=== PATIENT | female | born 1985 | race Caucasian/White ===

== ENCOUNTER 2016-12-03 19:55 | Inpatient (IN) | payer OTHER ==
[~2016-12-03] VITALS: Ht 172.7 cm; Wt 63.5 kg
[~2016-12-03 19:55] MED LIST: TRAZODONE100 MG PO; VALIUM2 MG PO; ZOLOFT 100 MG100 MG PO
--- NOTE | 2016-12-03 20:15 | ED PSYCHIATRIC COMPLAINT ---
History of Present Illness General Chief Complaint: ETOH/Drug Related Complaint Stated Complaint: BIBA FOR ETOH Source: patient Exam Limitations: intoxication Vital Signs & Intake/Output Vital Signs & Intake/Output Vital Signs Date Time Temp Pulse Resp B/P Pulse O2 O2 Flow FiO2 Ox Delivery Rate 12/05 0813 140/100 12/05 0718 144/88 12/05 0624 150/106 12/05 0619 97.8 90 20 148/110 97 12/05 0600 97.8 90 20 150/106 12/05 0411 98.2 70 20 134/92 96 12/05 0400 98.2 70 20 134/92 12/05 0000 99.1 84 20 134/82 12/05 0000 99.1 86 20 134/82 12/04 1999 99.5 85 18 124/80 12/04 1999 99.5 85 18 124/80 12/04 1352 97.8 80 20 142/80 96 Room Air 12/04 1141 79 20 150/80 93 Room Air ED Intake and Output 12/05 0000 12/04 1200 Intake Total 480 Output Total 200 Balance 280 Intake, Oral 480 Output, 200 Emesis Patient 140 lb Weight Allergies Coded Allergies: NO KNOWN ALLERGIES (01/01/15) Reconcile Medications Quetiapine Fumarate (Seroquel) 200 MG TABLET 1 TAB PO QPM MENTAL HEALTH ( Reported) TRAZODONE HCL (Trazodone HCl) 100 MG TABLET 2 TAB PO QPM SLEEP (Reported) Triage Note: PT BIBA ON PEER FOR ALCOHOL INTOXICATION. PER FAMILY, PT HAD BEEN DRINKING ALCOHOL AND USING ILLICT DRUGS FOR APPROXIMATELY THREE WEEKS. FAMILY REQUESTED PT TO HAVE DETOX AND SHE BECAME AGGRESSIVE ONSCENE. PT CRYING BUT COOPERATIVE UPON ARRIVAL. PT STATED SHE LST DRANK VODKA APPROX 1 HOUR AGO. DENIED ILLICIT DRUG USE AT THIS TIME. SECURITY AT BEDSIDE TO JUAN JOSE PT. PT CHANGED INTO PAPER SCRUBS. 1 BELONGINGS BAG TO CLOSET. NO VALUABLES BAG. DENIED SI/HI Triage Nurses Notes Reviewed? yes HPI: Patient presents for evaluation of withdrawal from alcohol. Patient states that her father told her to go to the emergency department due to withdrawal. Patient states that her last alcoholic beverage consisted of vodka a few hours ago. History is very limited due to the patient's clinical intoxication. She states that she has a headache, has flashes and feels shaky. Past History Travel History Traveled to [place] past 21 day No Medical History Any Pertinent Medical History? 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 History of MRSA: No History of VRE: No History of CDIFF: No Influenza Vaccine: 09/13/16 Surgical History Surgical History: none Psychosocial History Who do you live with Mother Services at Home None What is your primary language Albanian Family History Family History, If Any: Relation not specified for: Alcoholism in family Hx Contributory? No Review of Systems Review of Systems Constitutional: Reports: no symptoms. EENTM: Reports: no symptoms. Respiratory: Reports: no symptoms. Cardiovascular: Reports: no symptoms. GI: Reports: no symptoms. Genitourinary: Reports: no symptoms. Musculoskeletal: Reports: no symptoms. Skin: Reports: no symptoms. Neurological/Psychological: Reports: no symptoms. Hematologic/Endocrine: Reports: no symptoms. Immunologic/Allergic: Reports: no symptoms. All Other Systems: Reviewed and Negative Physical Exam Physical Exam General Appearance: SEE BELOW Neurological/Psychiatric: SEE BELOW Comments: General: Alert, calm, cooperative, EtOH-like odor Head: Normocephalic, atraumatic Eyes: Normal inspection, nystagmus present, EOMI Ears: Normal inspection Nose: Normal inspection Throat: Moist mucosa Neck: Supple, no goiter Heart: Regular rate and rhythm, no murmurs rubs or gallops Lungs: Clear to auscultation bilaterally with good air entry Abdomen: Soft nontender nondistended, normal bowel sounds Chest: Nontender Extremities: Normal range of motion grossly, mild tremors present, no cyanosis clubbing or edema of the extremities Neurologic: cranial nerves II through XII grossly intact, speech slurred, gait not assessed given clinical intoxication Psychiatric: No apparent delusions or hallucinations, no pressured speech or thought blocking SAD PERSONS Done? patient not suicidal Progress Differential Diagnosis: drug intoxication, drug overdose, drug withdrawal Plan of Care: Orders Procedure Date/time Status Change service to 12/05 0756 Active BASIC ELECTROLYTES PLUS BUN&CR 12/05 0500 Active Regular Diet 12/04 L Complete MAGNESIUM 12/04 1820 Complete HEPATIC FUNCTION PANEL 12/04 1820 Complete BASIC ELECTROLYTES PLUS BUN&CR 12/04 1800 Complete Patient Safety Monitor 12/04 1538 Active Vital Signs 12/04 1138 Active Teach/Educate 12/04 1138 Active Nutritional Intake, Monitor 12/04 1138 Active Isolation 12/04 1138 Active Intake & Output 12/04 1138 Active Patient Care Conference 12/04 1138 Active Activity/Ambulation 12/04 1138 Active Pathway - chart 12/04 1043 Active URINE 12/04 1043 Complete Add-on Test (ER Only) 12/04 1040 Active SOCIAL WORK CONSULT 12/04 1037 Active Lab Add-on Test 12/04 UNK Active PSYCHIATRIC CONSULT 12/04 UNK Active HEPATITIS PANEL 12/03 2159 Complete Current Medications Sig/Joel Start time Last Medication Dose Stop Time Status Admin Promethazine HCl 25 MG Q4P PRN 12/05 1030 UNVr (Phenergen) 12/12 1029 Nicotine 21 MG DAILY 12/05 1028 UNVr (Nicoderm) Pantoprazole Sodium 40 MG DAILY 12/05 1028 UNVr (Protonix) Folic Acid 1 MG DAILY 12/05 1000 AC (Folic Acid) Multivitamins 1 TAB DAILY 12/05 1000 AC (Theragran Vitamins) Thiamine HCl 100 MG DAILY 12/05 1000 AC (Vitamin B1) Magnesium Sulfate 1 GM ONCE ONE 12/05 0345 CAN (Mag Sulfate in D5) 12/05 0744 Dextrose/Water 100 ML (D5W) Cyanocobalamin/ 1 BAG ONCE ONE 12/04 2200 CAN Thiamine/Pyridoxine 12/05 0559 (Vitamin in I.V.) Dextrose/Water 1,000 ML (D5W 1000) Morphine Sulfate 2 MG Q4P PRN 12/04 1045 AC (Morphine) Oxycodone/ 1 TAB Q6P PRN 12/04 1045 AC Acetaminophen (Percocet) Thiamine HCl 100 MG ONCE ONE 12/04 1045 CAN (Vitamin B-1) 12/04 1144 Sodium Chloride 100 ML (Normal Saline 0.9%) Folic Acid 1 MG DAILY 12/04 1034 CAN (Folic Acid) Laboratory Tests 12/05/16 0900: Sodium Pending, Potassium Pending, Chloride Pending, Carbon Dioxide Pending, Anion Gap Pending, BUN Pending, Creatinine Pending, BUN/Creatinine Ratio Pending 12/04/16 1820: Total Bilirubin Cancelled, Direct Bilirubin Cancelled, AST Cancelled, ALT Cancelled, Alkaline Phosphatase Cancelled, Total Protein Cancelled, Albumin Cancelled 12/04/16 1820: Anion Gap 8, Estimated GFR > 60, BUN/Creatinine Ratio 10.0, Magnesium 1.7, Total Bilirubin 0.9, Direct Bilirubin 0.2, AST 199 H, ALT 130 H, Alkaline Phosphatase 62, Total Protein 6.1 L, Albumin 3.1 L 12/04/16 1043: Urine Test NEGATIVE Comments: 12/04/2016 12:27:32 AM patient has evidence of alcohol induced hepatitis and mild alcohol-induced pancreatitis. With review of the patient's 2 prior emergency department visits (she was placed in alcohol detox on both occasions) her alcohol level was nondetectable and her transaminases and lipase levels were normal. Patient is currently intoxicated. She does not seem to be manifesting signs of acute withdrawal at this time. I suspect that as the alcohol is metabolized that her lipase and transaminases will improve. Plan continued observation in the emergency department with repeat comprehensive metabolic panel. Serial CIWA scores. Departure Departure Disposition: STILL A PATIENT Condition: Stable Clinical Impression Primary Impression: Alcoholic hepatitis Secondary Impressions: Alcohol intoxication, Alcohol withdrawal, Alcoholic pancreatitis Referrals: SOPHIA REMY,THOMAS Rodriguez (PCP/Family) Departure Forms: Customer Survey General Discharge Information Admission Note Spoke With: SUSHIL MUELLER MD Documentation of Exam: Documentation of any treatments & extenuating circumstances including Concerns Regarding Discharge (functional status, medication knowledge or non-compliance, living conditions, etc.) that warrant an admission rather than observation: Continued alcohol consumption places the patient at high risk of pancreatitis, pancreatic failure, liver failure/cirrhosis. In order to avoid this the patient will need to cease drinking alcohol. Patient's alcohol use places pt at high risk of seizures and delirium tremens during cessation. Patient will be at high risk of withdrawal seizures and delirium tremens (both of which can be fatal) for up to 5 days after stopping alcohol. pt will require IV Ativan to prevent these complications. pt is therefore a very poor candidate for outpatient treatment given the above concerns. In addition the patient is also experiencing alcohol-induced hepatitis and mild alcohol-induced pancreatitis. Patient's transaminases and lipase levels should be monitored for improvement with cessation of alcohol. Pt will require at least 3 if not 5-7 days of treatment during alcohol cessation.
--- NOTE | 2016-12-03 20:25 | NUR ---
DR COREAS AT BEDSIDE FOR EVAL
[2016-12-03 21:10] VITALS: BP 122/88
--- NOTE | 2016-12-03 21:59 | NUR ---
LABS DRAWN AND SENT BY THIS [facility] (SST,LAV)
--- NOTE | 2016-12-03 22:06 | NUR ---
PT MEDICATED WITH ZOFRAN 4MG ODT FOR NAUSEA
[2016-12-03 22:09] LABS: ABSOLUTE BASOPHIL COUNT 0 /CUMM (0.0-0.2); ABSOLUTE EOSINOPHIL COUNT 0.1 /CUMM (0.0-0.7); ABSOLUTE GRANULOCYTE CT 6.4 /CUMM (1.4-6.5); ABSOLUTE LYMPH COUNT 1.9 /CUMM (1.2-3.4); ABSOLUTE MONOCYTE COUNT 0.4 /CUMM (0.10-0.60); BASOPHIL % 0.2 % (0.0-2.0); EOSINOPHIL % 1.3 % (0-5); GRANULOCYTE % 72.9 % (42.2-75.2); HEMATOCRIT 40.8 % (37-47); MEAN CORPUSCULAR HGB CONC 32.6 G/DL (33.0-37.0); MEAN PLATELET VOLUME 8.3 FL (7.4-10.4); PLATELET COUNT 209 /CUMM (130-400); RBC DISTRIBUTION WIDTH 16.4 % (11.5-14.5); WHITE BLOOD CELL COUNT 8.8 /CUMM (4.8-10.8)
[2016-12-03] MEDS ORDERED: SEROQUEL200 M1 PO (23:04)
[2016-12-03 23:30] VITALS: BP 113/73
--- NOTE | 2016-12-03 23:48 | NUR ---
PATIENT NOTED TO BE YELLING IN ROOM AT THIS TIME STATING I WANT TO CALL MY MOM!!!!!!!!!" PATIENT INFORMED OF CURRENT TIME, PATIENT STATES "OKAY, FINE. I DON'T WANT TO CALL HER. I JUST WANT TO SLEEP BUT I NEED MY TRAZODONE AND SEROQUEL." PATIENT INFORMED WAITING FOR MD TO ORDER MEDS PRIOR TO ADMINISTRATION. MD AWARE OF PATIENT REQUEST, AWAITING ORDERS. LIMITS SET W/ PATIENT REGARDING YELLING AT STAFF. PATIENT APOLOGETIC. SITTER REMAINS W/ PATIENT.
[2016-12-04] VITALS (8 sets, daily range): BP systolic 124–158; BP diastolic 71–97
--- NOTE | 2016-12-04 00:13 | NUR ---
PATIENT MEDICATED W/ TRAZODONE AND SEROQUEL PER EMAR. TOLERATED WELL. PATIENT REQUESTING BLANKETS FROM SITTER, BLANKETS PROVIDED. STATES "I'M JUST GOING TO GO TO SLEEP NOW." COOPERATIVE. LIGHTS DIMMED.
--- NOTE | 2016-12-04 01:29 | NUR ---
PATINT SLEEPING AT THIS TIME, REGULAR RESPIRATIONS NOTED. SITTER REMAINS W/ PATIENT. LIGHTS DIMMED.
--- NOTE | 2016-12-04 01:45 | NUR ---
PATIENT NOW AWAKE AND VOMITTING, CIWA SCORE-15. PATIENT DROWSY BUT AROUSABLE, FALL RISK, ASSISTED TO LAYING ON BED, PATIENT ATTEMPTING TO AMBULATE TO NURSES STATION. RN TO BEDSIDE SPEAKING W/ PATIENT W/ SITTER. MD AWARE OF PATIENT STATUES ANS CURRENT CIWA SCORE. AWAITING MED ORDERS.
--- NOTE | 2016-12-04 02:30 | NUR ---
IV EST #22 LEFT WRIST. NS INITIATED AT 150ML/HR PER EMAR. TOLERATING WELL. MEDICATED W/ ATIVAN 2MG IVP PER EMAR. TOLERATED WELL.
--- NOTE | 2016-12-04 03:45 | NUR ---
CIWA-14. PATIENT REPORT FEELING NAUSEOUS, REQUESTING ATIVAN. NOTED TO BE SPITTING INTO BASIN AT BEDSIDE. PATIENT DROWSY, PALE. HR NOW 108. PATIENT N OW REPORTING HEADACHE 05/22. MD AWARE AND ORDERING ZOFRAN. PATIENT INFORMED WAITING. NS CONTINUES TO INFUSE AT 150ML/HR.
--- NOTE | 2016-12-04 04:09 | NUR ---
PATIENT MEDICATED W/ ZOFRAN PER EMAR. TOLERATED WELL.
--- NOTE | 2016-12-04 05:30 | NUR ---
PATIENT NOTED TO BE VOMITTING DARK BROWN EMESIS, MD COREAS AWARE. MED ORDERS GRACIELA PLACED BY .
--- NOTE | 2016-12-04 05:50 | NUR ---
CIWA-15. PATIENT MEDICATED W/ ATIVAN AND PROTONIX PER EMAR. TOLERATED WELL.
--- NOTE | 2016-12-04 05:57 | NUR ---
POC ADMIT TO MD TIA AWAITING CALL FROM CASE MANAGEMENT TO CONFIRM.
--- NOTE | 2016-12-04 06:00 | NUR ---
PATIENT MEDICATED W/ PHENERGAN PER EMAR, INFUSING OVER 30 MINUTES, TOLERATING WELL.
--- NOTE | 2016-12-04 07:37 | NUR ---
CONT TO VOMIT.
--- NOTE | 2016-12-04 07:37 | NUR ---
PER NIGHT STAFF AWAITING CALL FROM [facility]. PER DR COREAS CONTINUING CARE JUST CALLED BACK.
--- NOTE | 2016-12-04 07:45 | NUR ---
MOVED TO ROOM 7. REQUESTS MORE ATIVAN,
--- NOTE | 2016-12-04 08:20 | NUR ---
URINE SAMPLE SENT TO LAB
--- NOTE | 2016-12-04 08:20 | NUR ---
PT TO BR, URINE FINALLY OBTAINED, PT INSISTS ON DRINKING WATER AND STATES SHE WILL DRINK FROM SINK, PT AWARE THAT SHE WILL BE PLACED IN HALLWAY BECAUSE SHE IS INSISTANT ON DRINKING FROM SINK, PT GIVEN 4 ICE CHIPS. REQUESTS ATIVAN, PT VS AND CIWA DO NOT SUPPORT ATIVAN. WILL DISCUSS WITH PROVIDER.
--- NOTE | 2016-12-04 08:42 | NUR ---
PT VERY ANXIOUS, CRYING AND EMOTIONAL PT CONT TO DRY HEAVE. AWARE OF NEED TO STAY NPO. PT VERY DIFFICULT TO INTERACT WITH REQUESTS TO KNOW DOSE OF ATIVAN PT AWARE THAT IT IS A PRN DOSE, BUT STATES SHE NEEDS MORE CIWA 5 BASED ON VOMITING AND ANXIETY WELL MILD AGITATION.
--- NOTE | 2016-12-04 08:55 | NUR ---
CONT TO AWAIT ORDERS FOR ADMISSION.
--- NOTE | 2016-12-04 09:15 | NUR ---
ADMISSION ORDERS NOW BEING PLACED.
--- NOTE | 2016-12-04 09:19 | NUR ---
PT FINALLY ASLEEP. NO DISTRESS.
--- NOTE | 2016-12-04 09:23 | History & Physical ---
RYEES NAVA MD 12/04/16 0922: General Information and HPI MD Statement: I have seen and personally examined MINDY JUNIOR and documented this H&P. The patient is a 31 year old F who presented with a patient stated chief complaint of [alcohol withdrawal]. Source of Information: patient, family, old records History of Present Illness: The patient is a 31-year-old female with a past medical history of anxiety and depression, history of alcohol abuse and has been drinking alcohol since the age of 16, history of multiple admissions to [facility] with the last one being in October 2016 and left AGAINST MEDICAL ADVICE at that time. The patient also has a remote history of leaving AMA from [facility] in October 2016. The patient was brought to the emergency department yesterday at 8 PM by her father who requested that the patient needs an alcohol detox. The father also mentioned that the patient has been drinking since she has left AGAINST MEDICAL ADVICE from here. Her last drink was 1 pint of vodka one hour before coming to the emergency department. When I saw the patient today in the morning the patient was still drowsy and was not able to give enough history due to medication effect and hence most of the history was obtained from the father and from the ER staff. The patient also has a history of smoking cocaine and marijuana. She does have a history of IV drug use even though she denies IV heroin injections recently. The patient has been feeling nauseous and had multiple episodes of clear vomitus. No history of alcohol-induced seizures in the past. Allergies/Medications Allergies: Coded Allergies: NO KNOWN ALLERGIES (01/01/15) Home Med list Quetiapine Fumarate (Seroquel) 200 MG TABLET 1 TAB PO QPM MENTAL HEALTH ( Reported) TRAZODONE HCL (Trazodone HCl) 100 MG TABLET 2 TAB PO QPM SLEEP (Reported) Past History Travel History Traveled to [place] past 21 day No Medical History Neurological: NONE EENT: NONE Cardiovascular: NONE Respiratory: NONE Gastrointestinal: ACID REFUX Hepatic: NONE Renal: NONE Musculoskeletal: NONE Psychiatric: alcohol dependence, anxiety, depression, CUTTING HERSELF PTSD PTSD Endocrine: NONE Blood Disorders: NONE Cancer(s): NONE 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 History of MRSA: No History of VRE: No History of CDIFF: No Isolation History: Standard Surgical History Surgical History: none Past Family/Social History Family History Relations & Conditions if any Relation not specified for: Alcoholism in family Psychosocial History Services at Home: None ETOH Use: heavy use Illicit Drug Use: marijuana Functional Ability ADLs Independent: dressing, eating, toileting, bathing. Ambulation: independent IADLs Independent: shopping, housework, finances, food prep, telephone, transportation , medication admin. Review of Systems Review of Systems Constitutional: Reports: see HPI. EENTM: Denies: see HPI, blurred vision, double vision, visual changes. Cardiovascular: Reports: see HPI. Respiratory: Denies: see HPI, cough, hemoptysis. GI: Reports: abdominal pain, nausea, vomiting. Denies: constipation. Genitourinary: Denies: dysuria, hematuria. Musculoskeletal: Denies: gout, joint pain, joint swelling. Exam & Diagnostic Data Last 24 Hrs of Vital Signs/I&O Vital Signs Date Time Temp Pulse Resp B/P Pulse O2 O2 Flow FiO2 Ox Delivery Rate 12/04 1023 98.9 82 16 139/88 12/04 1022 98.9 82 16 13988 99 Room Air 12/04 0915 98.3 75 18 150/90 100 Room Air 12/04 0746 98.4 82 24 135/71 12/04 0746 98.4 82 24 135/71 96 Room Air 12/04 0545 99.8 97 18 157/97 12/04 0545 99.8 97 18 157/97 99 Room Air 12/04 0404 98.0 108 18 158/94 100 Room Air 12/04 0345 98.0 108 18 158/94 12/04 0148 99.2 130 20 153/91 98 Room Air 12/04 0145 99.2 130 20 153/91 12/03 2330 98.3 96 16 113/73 12/03 2330 98.3 96 16 113/73 97 Room Air 12/03 2110 98.9 97 19 122/88 12/03 2100 98.9 67 19 122/88 97 Room Air Intake & Output 12/04 1600 12/04 0800 12/04 0000 Intake Total Output Total Balance Patient 116 lb Weight Physical Exam General Appearance Alert, Oriented X3 Skin No Rashes, No Breakdown, IV tracts on the right forearm HEENT Atraumatic, PERRLA Neck No JVD, No thryomegaly Lymphatic Axillary nl, Cervical nl Cardiovascular Regular Rate, Normal S1, Normal S2 Lungs Clear to Auscultation, Normal Air Movement Abdomen normal bowel sounds Tenderness in the right upper quadrant and mid epigastric area Diagnostic Data EKG Results Normal sinus rhythm, sinus tachycardia CXR Results Unremarkable Assessment/Plan Assessment: This is a 31-year-old female with extensive past medical history of alcohol abuse and unsuccessful detox in the past who presented to the [facility] emergency department requesting for alcohol withdrawal and detox. Vital the time of admission showed: Blood pressure 139/88, respiration rate of 18, pulse rate of 82, temperature 98.9 Labs Hemoglobin of 13.3, hematocrit of 40.8, platelet count of 209, sodium 144, potassium of 3.9, elevated AST and AST 604 and 202 respectively, elevated lipase of 625 No imaging performed Assessment 1. Alcohol withdrawal and intoxication 2. Alcohol-induced hepatitis 3. Elevated lipase and considering persistent abdominal pain alcohol-induced enteritis could be one of the differentials 4. History of anxiety and depression currently on Seroquel. No suicidal or homicidal ideation Plan We will admit the patient to general medicine floor We will start the patient on Ativan 2 mg every 6 and Ativan as per [facility] protocol Continue with multivitamin, thiamine and folate supplementation Social work and psych consult C/w Seroquel at night Considering the patient's abdominal pain and persistent nausea and vomiting we will do a CAT scan of the abdomen without contrast to rule out acute pancreatitis IV hydration normal saline and banana bag Supportive treatment and aggressive hydration We will recheck electrolytes in the evening Patient is full code Due to prophylaxis at all times As Ranked By This Provider Problem List: 1. ALCOHOL WITHDRAWAL 2. Alcohol abuse Core Measures/Miscellaneous Acute Coronary Syndrome ACS Diagnosis: No Cerebrovascular Accident CVA/TIA Diagnosis: No Congestive Heart Failure CHF Diagnosis: No Venous Thromboembolism VTE Risk Factors: Acute medical illness, Age > 40 VTE Prophylaxis Ordered Inpt: Pharm- Lovenox No Mech VTE prophylaxis d/t: No contraindications No VTE Pharm Prophylaxis d/t: No contraindications VTE Diagnosis: No VTE Type: NONE VTE Confirmed by (Test): NONE Severe Sepsis Severe Sepsis Present: No Septic Shock Septic Shock Present: No Miscellaneous Documentation Attending Case Discussed With: LUIS ANTHONY MD Primary Care Physician: THOMAS CORTES MD Patient sees these Specialists None Level of Patient Care: General Medicine LUIS ANTHONY MD 12/04/16 1938: Attending MD Review Statement Attending Statement Attending MD Statement: examined this patient, discuss w/resident/PA/COMPUTATIONAL LINGUIST, agreed w/resident/PA/COMPUTATIONAL LINGUIST, reviewed EMR data (avail) Attending Assessment/Plan: 31F PMH anxiety, depression, polysubstance abuse admitted for altered mental status, delirium, alcohol withdrawal, and transaminitis. Hemondynamically stable. Will start Ativan taper, IV hydration, monitor electrolytes, psychiatry consult, eventual social work consult.
--- NOTE | 2016-12-04 09:48 | NUR ---
RESIDENT BRANDY AT BEDSIDE.
--- NOTE | 2016-12-04 10:04 | NUR ---
UPON HOUSESTAFF LEAVING ROOM PT IMMEDIATELY AWAKE AND ASKING FOR ATIVAN AND WATER. PT EDUCATED THAT SHE CANNOT HAVE ATIVAN OR WATER D/T PREVIOUS DRY HEAVES AND VOMITING. SETTLED BACK TO SLEEP GIVEN SWABS.
--- NOTE | 2016-12-04 10:12 | NUR ---
CONT TO AWAIT BED ASSIGNMENT
--- NOTE | 2016-12-04 10:14 | NUR ---
PT HAS BED ASSIGNMENT 228-01, RN NOTIFIED.
--- NOTE | 2016-12-04 10:20 | NUR ---
NURSING RESIDENT SERVICE COORDINATOR CALLED AND STATES THAT PT BED ASSIGNMENT HAS CHANGED TO 225-01. RN NOTIFIED.
--- NOTE | 2016-12-04 10:43 | NUR ---
REPORT GIVEN TO SADIA, AMBIGUIOUS ORDERS FOR BANANA BAG. THIS TRAVELING SALES REPRESENTATIVE SPOKE WITH BHVAIN IN PHARMACY WILL CLARIFY ORDERS AND RETUIRN CALL. PT TO HAVE NONCONSTRAST CT THEN TO GO TO FLOOR, AWAITS URINE .
--- NOTE | 2016-12-04 11:15 | NUR ---
DISTRIBUTION CALLED FOR TRANSPORT TO ROOM # 225.
--- NOTE | 2016-12-04 11:19 | NUR ---
DISTRIBUTION BOOKED. 2 BELONGINGS BAGS SENT TO FLOOR WITH PT.
--- NOTE | 2016-12-04 11:44 | CT SCAN REPORT ---
EXAMINATION: CT ABDOMEN AND PELVIS WITHOUT CONTRAST CLINICAL INFORMATION: Abdominal pain and elevated lipase; question pancreatitis. COMPARISON: None. TECHNIQUE: Multidetector volumetric imaging was performed from the superior aspect of the liver through the pubic symphysis. Sagittal and coronal reformatted images were obtained on the technologist's workstation. DLP: 255.68 mGy-cm. FINDINGS: LUNG BASES: The visualized lung bases are unremarkable. LIVER, GALLBLADDER, AND BILIARY TREE: The liver is normal in size, shape, and generally diminished in attenuation. No focal hepatic lesion or biliary ductal dilatation is present. The gallbladder is unremarkable with no evidence of radiopaque gallstones, gallbladder wall thickening, or obvious pericholecystic inflammatory changes. PANCREAS: Unremarkable unenhanced appearance, without contour abnormality. No focal enlargement is seen. There is no peripancreatic acute fluid or fat stranding. SPLEEN: Unremarkable. ADRENAL GLANDS: Unremarkable. KIDNEYS AND URETERS: The bilateral kidneys are normal in size and attenuation. There are approximately 4 nonobstructing calculi ranging in size between 1-3 mm within the right renal upper pole, interpolar aspect and lower pole. No left renal calculi are seen. There is no bilateral hydronephroureter. No perinephric collection is seen. BLADDER: Unremarkable. GASTROINTESTINAL TRACT: There is mild diverticulosis, without acute diverticulitis. No bowel obstruction, free peritoneal air or abscess is seen. The vermiform appendix appears normal. ABDOMINAL WALL: There are 2 anterior abdominal wall small subcutaneous hyperdense foci, possibly injection hematomas. Please correlate clinically. No focal abdominal wall hernia defect is seen. LYMPH NODES: Normal. VASCULAR: Unremarkable. PELVIC VISCERA: There is a small amount of nondependent free fluid in the cul-de-sac, in particular rightward. The uterus and adnexal regions are otherwise unremarkable. OSSEOUS STRUCTURES: There is mild degenerative disc disease and spondylosis at L5-S1. No acute or aggressive osseous abnormality is seen. IMPRESSION: 1. There are tiny nonobstructing right renal calculi. No left renal calculi are seen. There is no hydronephroureter bilaterally. 2. No bowel obstruction, free intraperitoneal air or abscess is seen. There is no appendicitis or diverticulitis. 3. There is an unremarkable unenhanced appearance of the pancreas. No focal enlargement, peripancreatic fluid or fat stranding are seen. 5.There is mild dependent fluid in the cul-de-sac. This could be further evaluated with dedicated pelvic sonography, if clinically indicated. 6. Question anterior pelvic wall subcutaneous injection hematomas, for which clinical correlation is recommended.
--- NOTE | 2016-12-04 19:40 | Admission Certification ---
Admission Certification Certification Statement - As attending physician, I certify that at the time of - admission, based on clinical presentation, severity of - symptoms, need for further diagnostic testing and - therapeutic interventions, and risk of adverse outcomes - without in-hospital treatment, in my clinical assessment, - this patient requires an acute hospital stay for a minimum - of two nights or longer. I have also considered psychsocial - factors such as support system, advanced age, financial - issues, cognitive issues, and failed out-patient treatments, - past re-admission history, safety of patient, and lack of - compliance as applicable. Specific rationale supporting this admission is: Alcohol wihtdrawal delirium with transaminitis
[2016-12-05] VITALS (12 sets, daily range): BP systolic 116–150; BP diastolic 80–110
--- NOTE | 2016-12-05 06:42 | PN- Housestaff ---
See Addendum Subjective Follow-up For: Alcohol intoxication Subjective: Patient seen and examined at bedside. She reports feeling anxious and tremulous especially in her arms. She also endorses headache and abdominal pain with nausea and vomiting this morning. Her CIWA ranged from 10-14 through the day yesterday and has been 0 overnight. Required a total of 14mg of Ativan in 24 hours. She also reports being constipated for about a week. Review of Systems Constitutional: Reports: see HPI. Objective Last 24 Hrs of Vital Signs/I&O Vital Signs Date Time Temp Pulse Resp B/P Pulse O2 O2 Flow FiO2 Ox Delivery Rate 12/05 1147 99.1 91 18 140/100 12/05 1147 99.1 91 18 140/100 99 Room Air 12/05 0813 140/100 12/05 0718 144/88 12/05 0624 150/106 12/05 0619 97.8 90 20 148/110 97 12/05 0600 97.8 90 20 150/106 12/05 0411 98.2 70 20 134/92 96 12/05 0400 98.2 70 20 134/92 12/05 0000 99.1 84 20 134/82 12/05 0000 99.1 86 20 134/82 12/04 1999 99.5 85 18 124/80 12/04 1999 99.5 85 18 124/80 12/04 1352 97.8 80 20 142/80 96 Room Air Intake & Output 12/05 1600 12/05 0800 12/05 0000 Intake Total 500 240 Output Total Balance 500 240 Intake, Oral 500 240 Physical Exam General Appearance: Alert, Oriented X3, Cooperative, No Acute Distress Other Physical Findings: Skin No Rashes, No Breakdown, IV tracts on the right forearm HEENT Atraumatic, PERRLA Neck No JVD, No thryomegaly Lymphatic Axillary nl, Cervical nl Cardiovascular Regular Rate, Normal S1, Normal S2 Lungs Clear to Auscultation, Normal Air Movement Abdomen normal bowel sounds. Tenderness in the lower quadrants Current Medications: Current Medications Sig/Joel Start time Last Medication Dose Route Stop Time Status Admin Calcium Carbonate 500 MG ONCE ONE 12/05 0600 DC 12/05 PO 12/05 0601 0604 Cyanocobalamin/ 1 BAG ONCE ONE 12/05 1300 UNVr Thiamine/Pyridoxine IV 12/05 2058 Sodium Chloride 1,000 ML Cyanocobalamin/ 1 BAG ONCE ONE 12/04 2200 CAN Thiamine/Pyridoxine IV 12/05 0559 Dextrose/Water 1,000 ML Cyanocobalamin/ 1 BAG ONCE ONE 12/04 1045 DC 12/04 Thiamine/Pyridoxine IV 12/04 1844 1116 Dextrose/Water 1,000 ML Dextrose/Sodium 1,000 ML Q10H 12/05 0830 AC 12/05 Chloride IV 0913 Enoxaparin Sodium 40 MG DAILY 12/04 1110 AC 12/05 SC 0925 Folic Acid 1 MG DAILY 12/05 1000 AC PO Haloperidol 1 MG Q6P PRN 12/05 1145 AC PO Ibuprofen 600 MG Q6P PRN 12/04 1045 AC 12/04 PO 2015 Lorazepam 2 MG Q4 12/05 1400 AC 12/05 PO 1024 Lorazepam 0 Q1P PRN 12/05 0815 AC 12/05 IV 1142 Lorazepam 2 MG Q6 12/04 1200 DC 12/05 PO 0505 Lorazepam 1 MG Q2P PRN 12/04 0645 DC 12/05 IV 0633 Magnesium Oxide 400 MG ONE ONE 12/05 0345 DC 12/05 PO 12/05 0346 0504 Magnesium Sulfate 1 GM ONCE ONE 12/05 0345 CAN Dextrose/Water 100 ML IV 12/05 0744 Morphine Sulfate 2 MG Q4P PRN 12/04 1045 AC IV Multivitamins 1 TAB DAILY 12/05 1000 AC PO Nicotine 21 MG DAILY 12/05 1028 AC 12/05 TOP 1155 Nicotine 21 MG ONCE ONE 12/04 2230 DC 12/04 TOP 12/04 2231 2302 Ondansetron HCl 4 MG Q6P PRN 12/04 1045 AC 12/05 IV 1142 Oxycodone/ 1 TAB Q6P PRN 12/04 1045 AC Acetaminophen PO Pantoprazole Sodium 40 MG DAILY 12/05 1028 AC 12/05 IV 1155 Potassium Chloride 40 MEQ ONCE ONE 12/05 0345 DC 12/05 PO 12/05 0346 0505 Promethazine HCl 25 MG Q4P PRN 12/05 1030 AC 12/05 IV 12/12 1029 1036 Quetiapine Fumarate 200 MG QPM 12/04 2200 AC 12/04 PO 2302 Senna/Docusate Sodium 2 TAB DAILY 12/05 1040 AC PO Thiamine HCl 100 MG DAILY 01/23 1000 AC PO Trazodone HCl 200 MG QPM 12/05 2199 AC PO Trazodone HCl 50 MG ONCE ONE 12/04 2199 DC 12/04 PO 12/04 Trimethobenzamide HCl 200 MG 4 TIMES/DAY PRN 12/05 0815 AC 12/05 IM 0812 Last 24 Hrs of Lab/Riley Results Last 24 Hrs of Labs/Mics: Laboratory Tests 12/05/16 0900: Anion Gap 11, Estimated GFR > 60, BUN/Creatinine Ratio 7.1 12/04/16 1820: Total Bilirubin Cancelled, Direct Bilirubin Cancelled, AST Cancelled, ALT Cancelled, Alkaline Phosphatase Cancelled, Total Protein Cancelled, Albumin Cancelled 12/04/16 1820: Anion Gap 8, Estimated GFR > 60, BUN/Creatinine Ratio 10.0, Magnesium 1.7, Total Bilirubin 0.9, Direct Bilirubin 0.2, AST 199 H, ALT 130 H, Alkaline Phosphatase 62, Total Protein 6.1 L, Albumin 3.1 L Assessment/Plan Assessment: This is a 31-year-old female with extensive past medical history signifcant for alcohol and polysubstance abuse followed by multiple admissions for unsuccessful detox in the past who presented for alcohol detoxification. # Alcohol withdrawal and intoxication * Increase Ativan to 2 mg every 4 hours PO * Continue IV Ativan PRN per CIWA * Control nausea with anti-emetics * Discontinue sitter per psych recommendation * Continue with multivitamin, thiamine and folate supplementation * Give another banana bag today * Continue IV hydration in the setting of poor by mouth intake 2. Transaminitis Most likely alcohol-induced. LFTs trending down so far. No significant evidence of pathology for liver on CT abdomen. No other acute pathology is seen on CT abdomen and pelvis except for mild dependent fluid in the cul-de-sac. * Trending LFTs * Consider right upper quadrant ultrasound if LFTs trend up 3. History of anxiety and depression currently on Seroquel. No suicidal or homicidal ideation * Appreciate psych recommendations * Start IM haloperidol 1 mg every 6 hours as needed as per psych * Seroquel and trazodone at home dose @ bedtime -Regular diet -Moderate pain pathway -DVTppx Lovenox -Full code Problem List: 1. Anxiety 2. Depression 3. Marijuana abuse 4. Cocaine abuse 5. Alcohol withdrawal 6. Alcohol intoxication Pain Ratin Pain Location: Abdomen Pain Goal: Remain pain free Pain Plan: Moderate pain pathway Tomorrow's Labs & Rationales: None
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
[2016-12-06] VITALS (11 sets, daily range): BP systolic 110–148; BP diastolic 64–90
--- NOTE | 2016-12-06 06:03 | PN- Housestaff ---
DONTRELL RMEY,THERESA 12/06/16 0602: Subjective Follow-up For: Alcohol intoxication Subjective: Patient seen and examined at bedside. Patient has been sleeping for the most of the day yesterday and through the night. However when she woke up last night her CIWA score was high up to 20. This morning patient reports improvement in her anxiety and headaches tremors and abdominal pain. Patient continues to endorse abdominal pain especially with cough and retching. Required more than 20mg of IV PRN Ativan over the past 24 hours. Patient has not had a bowel movement in more than a week. Review of Systems Constitutional: Reports: see HPI. Objective Last 24 Hrs of Vital Signs/I&O Vital Signs Date Time Temp Pulse Resp B/P Pulse O2 O2 Flow FiO2 Ox Delivery Rate 12/06 0636 98.6 60 18 114/78 97 Room Air 12/06 0615 98.6 60 18 114/78 12/06 0406 97.9 87 18 130/70 97 Room Air 12/06 0400 97.9 87 18 130/70 12/06 0220 97.9 91 20 130/78 12/06 0158 97.9 91 20 130/78 98 Room Air 12/06 0010 97.8 110 20 148/90 98 Room Air 12/06 0000 97.8 110 20 148/90 12/05 2200 98.4 104 16 116/92 12/05 2018 98.8 107 20 118/90 12/05 1349 97.0 100 18 140/80 100 Room Air 12/05 1147 99.1 91 18 140/100 12/05 1147 99.1 91 18 140/100 99 Room Air Intake & Output 12/06 1600 12/06 0800 12/06 0000 Intake Total 1600 1250 Output Total 450 300 Balance 1150 950 Intake, IV 1000 500 Intake, Oral 600 750 Number 0 Bowel Movements Output, 450 300 Emesis Physical Exam General Appearance: Alert, Oriented X3, Cooperative, No Acute Distress Other Physical Findings: Skin No Rashes, No Breakdown, IV tracts on the right forearm HEENT Atraumatic, PERRLA Neck No JVD, No thryomegaly Lymphatic Axillary nl, Cervical nl Cardiovascular Regular Rate, Normal S1, Normal S2 Lungs Clear to Auscultation, Normal Air Movement Abdomen normal bowel sounds. Tenderness in the lower quadrants Current Medications: Current Medications Sig/Joel Start time Last Medication Dose Route Stop Time Status Admin Cyanocobalamin/ 1 BAG ONCE ONE 12/05 1300 DC 12/05 Thiamine/Pyridoxine IV 12/05 2059 1426 Sodium Chloride 1,000 ML Dextrose/Sodium 1,000 ML Q10H 12/05 0830 AC 12/06 Chloride IV 0226 Enoxaparin Sodium 40 MG DAILY 12/04 1110 AC 12/05 SC 0925 Folic Acid 1 MG DAILY 12/05 1000 AC PO Haloperidol 1 MG Q6P PRN 12/05 1315 DC 12/05 IM 2249 Haloperidol 1 MG ONCE ONE 12/05 1300 DC 12/05 IM 12/05 1301 1305 Haloperidol 1 MG Q6P PRN 12/05 1145 DC PO Ibuprofen 600 MG Q6P PRN 12/04 1045 AC 12/04 PO 2015 Lorazepam 2 MG Q4 12/05 1400 AC 12/06 PO 0615 Lorazepam 0 Q1P PRN 12/05 0815 AC 12/06 IV 1118 Morphine Sulfate 2 MG Q4P PRN 12/04 1045 AC IV Multivitamins 1 TAB DAILY 12/05 1000 AC PO Nicotine 21 MG DAILY 12/05 1028 AC 12/06 TOP 1122 Ondansetron HCl 4 MG Q6P PRN 12/04 1045 AC 12/06 IV 1118 Oxycodone/ 1 TAB Q6P PRN 12/04 1045 AC Acetaminophen PO Pantoprazole Sodium 40 MG DAILY 12/05 1028 AC 12/06 IV 0948 Promethazine HCl 25 MG Q4P PRN 12/05 1030 AC 12/05 IV 12/12 1029 1036 Quetiapine Fumarate 200 MG QPM 12/04 2200 AC 12/05 PO 2136 Senna/Docusate Sodium 2 TAB DAILY 12/05 1040 AC PO Thiamine HCl 100 MG DAILY 12/05 1000 AC PO Trazodone HCl 200 MG QPM 12/05 2200 AC 12/05 PO 2137 Trimethobenzamide HCl 200 MG 4 TIMES/DAY PRN 12/05 0815 AC 12/06 IM 1028 Assessment/Plan Assessment: This is a 31-year-old female with extensive past medical history signifcant for alcohol and polysubstance abuse followed by multiple admissions for unsuccessful detox in the past who presented for alcohol detoxification. # Alcohol withdrawal and intoxication * Continue Ativan 2 mg every 4 hours PO * Continue IV Ativan PRN per CIWA * Control nausea with anti-emetics * Continue with multivitamin, thiamine and folate supplementation * Continue IV hydration in the setting of poor by mouth intake * Keep the patient on clear liquid diet for now * Discontinue haloperidol as he can reduce the seizure threshold in the setting of alcohol withdrawal # Transaminitis Most likely alcohol-induced. LFTs trending down so far. No significant evidence of pathology for liver on CT abdomen. No other acute pathology was seen on CT abdomen and pelvis except for mild dependent fluid in the cul-de-sac. * Repeat LFTs tomorrow * Consider right upper quadrant ultrasound if LFTs trend up # Elevated lipase There is a suspicion for auditory pancreatitis given her chronic core dependence. However CT scan done was unremarkable for any enhanced appearance of the pancreas with no focal enlargement, peripancreatic fluid or fat stranding are seen. * Check repeat lipase tomorrow morning # History of anxiety and depression currently on Seroquel. No suicidal or homicidal ideation * Appreciate psych recommendations * Start IM haloperidol 1 mg every 6 hours as needed as per psych * Seroquel and trazodone at home dose @ bedtime -Regular diet -Moderate pain pathway -DVTppx Lovenox -Full code Problem List: 1. ALCOHOL WITHDRAWAL 2. Alcohol abuse 3. Anxiety 4. Depression 5. Marijuana abuse 6. Cocaine abuse 7. DVT prophylaxis 8. Full code status 9. Polysubstance abuse 10. Acute alcoholic hallucinosis Pain Ratin Pain Location: Abdomen Pain Goal: Remain pain free Pain Plan: Mild pathway Tomorrow's Labs & Rationales: BEP to check for electrolyte disturbances LFTs and lipase to check for hepatitis/pancreatitis ERINN REMY,SALOMÓN 12/06/16 1205: Attending MD Review Statement Attending Statement Attending MD Statement: examined this patient, discuss w/resident/PA/WOOD CARVER, agreed w/resident/PA/WOOD CARVER, reviewed EMR data (avail), discussed with nursing, discussed with case mgmt, amended to note Attending Assessment/Plan: Patient seen and examined. Her CIWA was elevated yesterday requiring significant dosing of Ativan all through the day. She however appears to be doing better this morning. She is less agitated as compared to yesterday. She is also significantly less tremulous. She is alert and oriented 3. She reports ambulating around the unit. That account will maintain her on her current Ativan regimen without tapering. Nausea and mild vomiting continues to be significant complaint. She denies abdominal pain but only reports discomfort from repeated retching.. She has not had a bowel movement in several days however she attributes this to not eating. On examination her abdomen is nondistended, soft and nontender. Bowel sounds are normoactive. Her lipase level was only mildly elevated with no evidence of pancreatitis on imaging. Symptoms a be secondary to a combination of her withdrawal process and alcoholic hepatitis. Problems: 1. Alcohol withdrawal syndrome. 2. Intractable nausea 3. Alcoholic hepatitis 4. Polysubstance abuse Recommendations: -Continue her on her current Ativan dosing without tapering. -I continue to recommend avoiding Haldol therapy to avoid decreasing her seizure threshold. -Continue IV hydration until oral intake improves. -Continue current antiemetic therapy. -Recommend checking lipase levels and LFTs with repeat labs tomorrow.
--- NOTE | 2016-12-06 15:50 | PN- Psychiatry ---
Assessment/Plan Impression: Identifying Info: 31-year-old single female RAISA on [facility]ER to [facility] emergency department on 12/03/16 intoxicated and combative. Admitted for alcohol detox now on A. SUBJECTIVE "I just want to stop drinking." Patient reports treatment motivation requesting to go to rehabilitation in [place], [place] and return to follow-up care at the [facility]. Requesting to stay on her daily at bedtime dose of Seroquel and trazodone. OBJECTIVE Mental Status Exam Presentation/Appearance: Calm. Cooperative with evaluation. Hospital garb. Lying in bed. Orientation: x4 Sensorium: Somnolent but easy to arouse Eye contact: Appropriate Affect: Tearful at times congruent with stated mood Mood: Depressed Depression: Endorses Anxiety: Denies at present Thought Content: - Denies SI/HI, AH/VH, PI. States and also believes they will not kill themselves. - Denies Hopeless/Helpless Thoughts Thought Process: Goal directed Speech: Normal tone and rate Judgment: Fair Insight: Fair Cognition: Memory: Recent short-term deficits related to detox and medication Attention/Concentration: Grossly intact on interview Patient has received 23 mg of Ativan over the past 24 hours with scheduled and when necessary dosing. CIWA scores have ranged from 0-23, most recent 0 at 0600 this AM. ASSESSMENT 31-year-old single female with a history of significant trauma and subsequent substance abuse presents in the context of alcohol withdrawal. At present she is treatment motivated but has a history of leaving AMA. Differential diagnosis Alcohol use disorder, recurrent, severe Alcohol withdrawal PTSD Benzodiazepine use disorder Cocaine use disorder Cannabis use disorder Suggestion: 1. Increase Ativan dosing to 3 mg every 4 hours to prevent breakthrough alcohol withdrawal symptoms reduce the need for PRN dose. Recommend the following taper schedule approximately 20% decrease original dosing where CIWA stabilized per day: - Day 1: Ativan 3mg q4h = 18mg/day - Day 2: Ativan 2mg q4h = 12mg/day - Day 3: Ativan 2mg q6h = 8mg/day - Day 4: Ativan 1mg q6h = 4mg/day - Day 5: Ativan 0.5mg q6h =2mg/day Please continue PRN dose as currently ordered 2. Please continue vitamin supplementation. 3. Per Kirk Clarkton INSIDE BARREL POLISHER, "If patient wishes to leave AMA, and she is not delirous, please ask her to verbalize understanding of the risks, as she has been informed that the lorazepam taper will not be continued upon leaving." If you have additional questions on capacity we would be happy to clarify should the need arise. 4. Please continue Seroquel and trazodone as currently ordered. Thank you for including psychiatry in this case we'll continue to follow. Shawn Hernandez APRN, pager [phone] Subjective Subjective: .
--- NOTE | 2016-12-06 19:47 | NUR ---
Referral received yesterday via electronic job order clerk. This patient is a 31 year old female, admitted to the hospital on 12/04/16 for a voluntary detox. Patient placed on CIWA for observation of withdrawal symptoms. Patient has been symptomatic and has received 23mg of ativan in the past 24 hours. Unable to assess patients interest/motivation in rehab at this time. Patient known to me from previous admission with similar presentation. At that time, she had verbalized interest in participating in an inpatient treatment program at the [facility] in [place], [place]. Unfortunately, she signed out AMA. Will follow to better assess aftercare needs.
--- NOTE | 2016-12-06 20:58 | Event Note ---
Event Note Event Note: Situation Patient want to leave AMA at around 8:45pm today. Brief Patient is a 31 YO F with PMH significant for multiple admissions for alcohol detox and left AMA during all these admissions. She came back with seizures in the past. She received around 18mg of ativan today. She was explained the risk of seizures and upon leaving. She repeats that she understands and want to leave. I spoke to patient, she was A ox3, not delirius. I explained the risks of Alcohol and BZD withdrawal along with seizure. Patient understands the risks. Still wants to leave AMA. No prescription was provided. Still wants to leave AMA. No prescription was provided.
--- NOTE | 2016-12-06 21:01 | Patient Discharge Instructions ---
Discharge Instructions General Discharge Information You were seen/treated for: Alcohol detoxification Watch for these problems: Seizures tremulousness, anxiety, agitation Special Instructions: Please follow up with psychiatrist in a week Please follow up with PCP Return of withdrawl symptoms need to go to ER. Diet Continue normal diet: Yes Activity Full Activity/No Limits: Yes Acute Coronary Syndrome Inclusion Criteria At DC or during hospital stay patient has or had the following: ACS DIAGNOSIS No Discharge Core Measures Meds if any: Prescribed or Continued at Discharge Meds if any: NOT Prescribed or Continued at Discharge Congestive Heart Failure Inclusion Criteria At DC or during hospital stay patient has or had the following: CHF DIAGNOSIS No Discharge Core Measures Meds if any: Prescribed or Continued at Discharge Meds if any: NOT Prescribed or Continued at Discharge Cerebrovascular accident Inclusion Criteria At DC or during hospital stay patient has or had the following: CVA/TIA Diagnosis No Discharge Core Measures Meds if any: Prescribed or Continued at Discharge Meds if any: NOT Prescribed or Continued at Discharge Venous thromboembolism Inclusion Criteria VTE Diagnosis No VTE Type NONE VTE Confirmed by (Test) NONE Discharge Core Measures - Per Current guidelines, there needs to be overlap - treatment for the first 5 days of Warfarin therapy. - If discharged on Warfarin prior to 5 days of - overlap therapy, the patient will need to be - assessed for post discharge needs including - *Post discharge parental anticoagulation - *Warfarin and/or parental anticoagulation education - *Follow up date to check INR post discharge At least 5 days overlap therapy as Inpatient No Meds if any: Prescribed or Continued at Discharge Note: Overlap Therapy is Warfarin and Anticoagulant Meds if any: NOT Prescribed or Continued at Discharge
--- NOTE | 2016-12-06 21:25 | NUR ---
PT REQUESTING TO LEAVE AMA . STATES "IM READY TO GO HOME" IV OUT. INSURANCE SALES ASSOCIATE MARC , RESIDENT JANET AND NETWORK CABLER IN TO SPEAK WITH PT. PT INSISTENT ON LEAVING. PT SIGNED AMA. PT LEFT WITH BELONGINGS.
--- NOTE | 2016-12-23 10:29 | Discharge Summary ---
Visit Information Visit Dates Admission Date: 12/04/16 Discharge Date: 12/06/16 Hospital Course Course Attending Physician: SALOMÓN PLASENCIA M.D Primary Care Physician: THOMAS CORTES MD Hospital Course: This is a 31-year-old female with extensive past medical history signifcant for alcohol and polysubstance abuse followed by multiple admissions for unsuccessful detox in the past who presented for alcohol detoxification. The patient was admitted to general medicine service for the management of following problems: # Alcohol withdrawal and intoxication Patient was Ativan 2 mg every 4 hours PO and IV Ativan PRN per CIWI protocol. Her Ativan taper was not susccessfully completed as patient left against medical advice. Nausea was controlled with anti-emetics. She received IV hydration with multivitamin, thiamine and folate supplementation. # Transaminitis Most likely alcohol-induced. LFTs trendeddown since the admission. No significant evidence of pathology for liver on CT abdomen. No other acute pathology was seen on CT abdomen and pelvis except for mild dependent fluid in the cul-de-sac. # Elevated lipase There was initially a suspicion for pancreatitis given her chronic alcohol dependence. However CT scan was unremarkable for any enhanced appearance of the pancreas with no focal enlargement, peripancreatic fluid or fat stranding. # History of anxiety and depression. Patient deniedsuicidal or homicidal ideation. kaela was consulted. Patient was kept on her home meds Seroquel and trazodone. Allergies: Coded Allergies: NO KNOWN ALLERGIES (01/01/15) Disposition Summary Disposition Principal Diagnosis: Alcohol intoxication/withdrawal Additional Diagnosis: Transaminitis Discharge Disposition: left against medical adv Discharge Instructions General Discharge Information Code Status: Full Code Patient's Diet: N/A Patient's Activity: N/A Follow-Up Instructions/Appts: N/A Medications at Discharge Discharge Medications: Continue taking these medications: TRAZODONE HCL (Trazodone HCl) 100 MG TABLET 2 Tablet ORAL Every night Quetiapine Fumarate (Seroquel) 200 MG TABLET 1 Tablet ORAL Every night Qty = 30 Copies To: SOPHIA REMY,THOMAS Rodriguez Attending Review Statement Documenting Attending: SALOMÓN PLASENCIA M.D Other Findings: I have reviewed the discharge summary
== END 2016-12-06 21:50 | disposition left against medical advice (07) | DRG 894 ==
LOC: ENRESERVTM → CANRESERV → ENRESERVDT → ERH 19:55 → 2NA 12-04 02:55 → ERHI 12-04 02:55 → 2NA 12-04 11:24
PROVIDERS: Emergency Medicine; ADMIT Internal Medicine
DX: F10.239 Alcohol dependence with withdrawal, unspecified (principal); K70.10 Alcoholic hepatitis without ascites
CPT/HCPCS: 2NAP; 36415; 74176; 80307; 81025; 82436; 93005; 93010; G0480; J1630; J1650; J2405; J2550; J2765; J3101; J3250; J3490; J7042; J7060

== ENCOUNTER 2017-01-10 20:22 | Emergency (ER) | payer OTHER ==
[~2017-01-10 20:22] MED LIST changes: +SEROQUEL200 M1 PO
[2017-01-10 20:57] LABS: ABSOLUTE BASOPHIL COUNT 0.1 /CUMM (0.0-0.2); ABSOLUTE EOSINOPHIL COUNT 0.1 /CUMM (0.0-0.7); ABSOLUTE GRANULOCYTE CT 11.5 /CUMM (1.4-6.5); ABSOLUTE LYMPH COUNT 5.8 /CUMM (1.2-3.4); ABSOLUTE MONOCYTE COUNT 1.4 /CUMM (0.10-0.60); BASOPHIL % 0.3 % (0.0-2.0); EOSINOPHIL % 0.6 % (0-5); GRANULOCYTE % 60.7 % (42.2-75.2); HEMATOCRIT 41.9 % (37-47); MEAN CORPUSCULAR HGB 30.4 PG (27.0-31.0); MEAN CORPUSCULAR HGB CONC 32.9 G/DL (33.0-37.0); MEAN CORPUSCULAR VOLUME 92.3 FL (81.0-99.0); MEAN PLATELET VOLUME 8.1 FL (7.4-10.4); PLATELET COUNT 337 /CUMM (130-400); RBC DISTRIBUTION WIDTH 15.4 % (11.5-14.5); RED BLOOD CELL CT 4.54 /CUMM (4.20-5.40); WHITE BLOOD CELL COUNT 18.9 /CUMM (4.8-10.8)
--- NOTE | 2017-01-10 20:58 | ED GENERAL ADULT ---
History of Present Illness General Chief Complaint: ETOH/Drug Related Complaint Stated Complaint: ETOH DETOX Source: patient Exam Limitations: no limitations Vital Signs & Intake/Output Vital Signs & Intake/Output Vital Signs Date Time Temp Pulse Resp B/P Pulse O2 O2 Flow FiO2 Ox Delivery Rate 01/11 1038 98.8 110 18 105/57 01/11 0904 98.8 110 18 105/57 98 01/11 0629 96.5 78 16 120/64 98 Room Air 01/11 0418 95.2 106 18 145/89 01/10 2251 16 01/10 2231 Room Air ED Intake and Output 01/11 0000 01/10 1200 Intake Total Output Total Balance Patient 140 lb Weight (DANIEL REMY,MONIKA Mason) Allergies Coded Allergies: NO KNOWN ALLERGIES (01/01/15) Reconcile Medications Quetiapine Fumarate (Seroquel) 200 MG TABLET 1 TAB PO QPM MENTAL HEALTH ( Reported) TRAZODONE HCL (Trazodone HCl) 100 MG TABLET 2 TAB PO QPM SLEEP (Reported) Triage Note: PT ADMITS TO ETOH, LABILE 1 MINUTES CALM AND THEN BEGINS TO UNDRESS INTRAGE, PT REPORTS SOME DRUG USE, LABS DRAWN AND SENT, BILAT BANDAGES TO HANDS HOLES IN KNESS OF PANTS Triage Nurses Notes Reviewed? yes : No Patient currently breastfeeds: No HPI: Patient brought in by her friend for alcohol intoxication and suicidal ideations. Patient denies any specific plan however states that she just would rather than continue to keep drinking. Patient denies any hallucinations. There are no homicidal ideations. Patient is very depressed because her child's father took her child away from her. Patient feels that she is all alone. Patient feels that she has nothing to live for. (DANIEL REMY,MONIKA Mason) Past History Travel History Traveled to [place] past 21 day No Medical History Any Pertinent Medical History? 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 History of MRSA: No History of VRE: No History of CDIFF: No Surgical History Surgical History: none Psychosocial History Who do you live with Mother Services at Home None What is your primary language South Sudanese Tobacco Use: Current Daily Use Daily Tobacco Use Amount/Type: => 5 Cigarettes daily ETOH Use: alcoholic Illicit Drug Use: denies illicit drug use Family History Family History, If Any: Relation not specified for: Alcoholism in family Hx Contributory? No (DANIEL REMY,MONIKA Mason) Review of Systems Review of Systems Constitutional: Reports: no symptoms. EENTM: Reports: no symptoms. Respiratory: Reports: no symptoms. Cardiovascular: Reports: no symptoms. GI: Reports: no symptoms. Genitourinary: Reports: no symptoms. Musculoskeletal: Reports: no symptoms. Skin: Reports: no symptoms. Neurological/Psychological: Reports: see HPI, depressed. Hematologic/Endocrine: Reports: no symptoms. Immunologic/Allergic: Reports: no symptoms. All Other Systems: Reviewed and Negative (DANIEL REMY,MONIKA Mason) Physical Exam Physical Exam General Appearance: well developed/nourished, alert, awake, intoxicated Head: atraumatic, normal appearance Eyes: Bilateral: PERRL, EOMI, other (SLUGGISH). Ears, Nose, Throat: normal pharynx, normal ENT inspection Neck: normal inspection, supple, full range of motion Respiratory: normal breath sounds, chest non-tender, no respiratory distress, lungs clear Cardiovascular: regular rate/rhythm, normal peripheral pulses Gastrointestinal: normal bowel sounds, soft, non-tender, no organomegaly Back: normal inspection, normal range of motion Extremities: normal inspection, normal capillary refill, normal range of motion, no edema Neurologic/Psych: no motor/sensory deficits, awake, alert, oriented x 3, normal mood/affect Skin: intact, normal color Comments: Patient is hypersexual and violates personal space. Core Measures ACS in differential dx? No CVA/TIA Diagnosis: No Severe Sepsis Present: No Septic Shock Present: No (DANIEL REMY,MONIKA Mason) Progress Differential Diagnoses I considered the following diagnoses in my evaluation of the patient: [Alcohol intoxication, electrolyte abnormality, suicidal ideations] Plan of Care: Orders Procedure Date/time Status Regular Diet 01/11 B Active Continuous Observation Monitor 01/10 2222 Active ED CRISIS PSYCH CONSULT 01/10 2222 Active CIWA 01/10 2051 Active URINE DRUGS OF ABUSE 01/10 2051 Active ACETOMINOPHEN 01/10 2042 Complete SALICYLATE 01/10 2042 Complete ETHANOL 01/10 2042 Complete COMPREHENSIVE METABOLIC PANEL 01/10 2042 Complete CBC WITHOUT DIFFERENTIAL 01/10 2042 Complete Laboratory Tests 01/10/172045: Anion Gap 20 H, Estimated GFR > 60, BUN/Creatinine Ratio 10.0, Glucose 108 H, Calcium 9.8, Total Bilirubin 0.5, AST 43 H, ALT 28, Alkaline Phosphatase 76, Total Protein 8.5 H, Albumin 4.9, Globulin 3.6, Albumin/Globulin Ratio 1.4, CBC w Diff MAN DIFF ORDERED, RBC 4.54, MCV 92.3, MCH 30.4, RDW 15.4 H, MPV 8.1, Gran % 60.7, Lymphocytes % 30.9, Monocytes % 7.5, Eosinophils % 0.6, Basophils % 0.3, Absolute Granulocytes 11.5 H, Absolute Lymphocytes 5.8 H, Absolute Monocytes 1.4 H, Absolute Eosinophils 0.1, Absolute Basophils 0.1, Platelet Estimate ADEQUATE, Normochromic RBCs VERIFIED, Poikilocytosis RARE, Stomatocytes RARE, PUBS MCHC 32.9 L, Salicylates < 1.0, Acetaminophen < 10.0 L, Serum Alcohol > 300.0 Initial ED EKG: none Hand-Off Endorsed To: DANIELLE JAMES MD Endorsed Time: 0700 Pending: consult (CRISIS) (DANIEL REMY,MONIKA Mason) Comments: No longer desires detox or crisis intervention. No SI. (DANIELLE JAMES MD) Departure Departure Condition: Stable Clinical Impression Primary Impression: Alcohol intoxication Secondary Impressions: Suicidal ideation Referrals: THOMAS CORTES MD (PCP/Family) (MONIKA SANCHEZ MD) Departure Time of Disposition: 1125 Disposition: HOME OR SELF CARE Departure Forms: General Discharge Information (DANIELLE JAMES MD) Critical Care Note Critical Care Note Critical Care Time: non-applicable (MONIKA SANCHEZ MD)
[2017-01-11 11:39] VITALS: BP 136/80
== END 2017-01-11 11:47 ==
LOC: ERH 20:22
PROVIDERS: Emergency Medicine
DX: F10.129 Alcohol abuse with intoxication, unspecified (principal); R45.851 Suicidal ideations
CPT/HCPCS: 80307; 96372; G0480; J1200; J3101; J3490

== ENCOUNTER 2018-06-21 00:38 | Inpatient (IN) | payer OTHER ==
[~2018-06-21] VITALS: Ht 172.7 cm; Wt 80.5 kg
[2018-06-21] VITALS (9 sets, daily range): BP systolic 114–172; BP diastolic 58–95
[~2018-06-21 00:38] MED LIST changes: +TRAZODONE HCL100 M1 PO; -TRAZODONE100 MG PO
--- NOTE | 2018-06-21 01:01 | ED PSYCHIATRIC COMPLAINT ---
History of Present Illness General Chief Complaint: ETOH/Drug Related Complaint Stated Complaint: BIBA, ETOH WITHDRAWL Source: patient, old records, EMS Exam Limitations: no limitations Vital Signs & Intake/Output Vital Signs & Intake/Output Vital Signs Date Time Temp Pulse Resp B/P B/P Pulse O2 O2 Flow FiO2 Mean Ox Delivery Rate 06/21 302 75 20 130/81 100 Room Air 06/21 0300 98.8 75 20 130/81 06/21 0100 98.9 101 20 172/95 06/21 0042 98.9 101 20 172/95 97 Room Air Allergies Coded Allergies: NO KNOWN ALLERGIES (01/01/15) Reconcile Medications Quetiapine Fumarate (Seroquel) 200 MG TABLET 1 TAB PO QPM MENTAL HEALTH ( Reported) TRAZODONE HCL (Trazodone HCl) 100 MG TABLET 2 TAB PO QPM SLEEP (Reported) Triage Nurses Notes Reviewed? yes Onset: Just prior to arrival Duration: hour(s):, constant, continues in ED, getting worse Timing: recent history Severity: severe Associated Symptoms: impaired concentration LMP (ages 10-50): unknown : No Patient currently breastfeeds: No HPI: 1 day prior to admission patient decreased her normal alcohol intake with last drink 9 hours prior to admission. She is a history of withdrawal seizures and DTs. She presents with anxiety increased confusion generalized tremors and shaking. She denies fever chills nausea vomiting diarrhea abdominal pain chest pain shortness breath headache dysuria rash bleeding. Past History Travel History Traveled to [place] past 21 day No Medical History Any Pertinent Medical History? 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 History of MRSA: No History of VRE: No History of CDIFF: No Surgical History Surgical History: none Psychosocial History Who do you live with Mother Services at Home None What is your primary language American Family History Family History, If Any: Relation not specified for: Alcoholism in family Hx Contributory? No Review of Systems Review of Systems Constitutional: Reports: no symptoms. EENTM: Reports: no symptoms. Respiratory: Reports: no symptoms. Cardiovascular: Reports: no symptoms. GI: Reports: no symptoms. Genitourinary: Reports: no symptoms. Musculoskeletal: Reports: no symptoms. Skin: Reports: no symptoms. Neurological/Psychological: Reports: see HPI, anxiety, tremors. Hematologic/Endocrine: Reports: no symptoms. Immunologic/Allergic: Reports: no symptoms. All Other Systems: Reviewed and Negative Physical Exam Physical Exam General Appearance: well developed/nourished, alert, awake, anxious, severe distress Head: atraumatic, normal appearance Eyes: Bilateral: normal appearance, PERRL, EOMI. Ears, Nose, Throat: normal pharynx, normal ENT inspection, hearing grossly normal Neck: normal inspection, supple, full range of motion Respiratory: normal breath sounds, chest non-tender, no respiratory distress, quiet respiration, lungs clear Cardiovascular: regular rate/rhythm, normal peripheral pulses, norml femoral pulses equa Gastrointestinal: normal bowel sounds, soft, non-tender, no organomegaly Extremities: normal range of motion, no ligament instability Neurological/Psychiatric: no motor/sensory deficits, awake, agitated, alert, anxious, program trainer II-XII nml as tested, tremulous Appearance/Memory/Insight: disheveled, impaired insight Behavoir/Eye Contact/Speech: cooperative, normal speech Thoughts/Hallucinations: no apparent hallucination Skin: intact, normal color, warm/dry SAD PERSONS Done? patient not suicidal Progress Differential Diagnosis: drug intoxication, drug overdose, drug withdrawal, electrolyte abnormality, hypoglycemia Plan of Care: Orders Procedure Date/time Status Regular Diet 06/21 B Active OXYGEN SETUP (GEN) 06/21 347 Active Saline Lock 06/21 347 Active Admit to inpatient 06/21 347 Active Vital Signs 06/21 347 Active Activity/Ambulation 06/21 347 Active Code Status 06/21 347 Active CIWA 06/21 58 Active URINE DRUG SCREEN FOR ER ONLY 06/21 58 Active HUMAN BETA HCG SCREEN 06/21 58 Complete ETHANOL 06/21 58 Complete COMPREHENSIVE METABOLIC PANEL 06/21 58 Complete CBC WITHOUT DIFFERENTIAL 06/21 58 Complete Laboratory Tests 06/21/18 0105: Anion Gap 15, Estimated GFR > 60, BUN/Creatinine Ratio 15.7, Glucose 95, Calcium 10.0, Total Bilirubin 0.7, AST 42 H, ALT 29, Alkaline Phosphatase 50, Total Protein 8.1, Albumin 4.8, Globulin 3.3, Albumin/Globulin Ratio 1.5, Total Beta HCG NEGATIVE, CBC w Diff MAN DIFF ORDERED, RBC 4.21, MCV 86.5, MCH 28.7, MCHC 33.2, RDW 20.2 H, MPV 8.4, Gran % 63.1, Lymphocytes % 29.8, Monocytes % 6.0, Eosinophils % 0.6, Basophils % 0.5, Absolute Granulocytes 7.8 H, Segmented Neutrophils 55, Absolute Lymphocytes 3.7 H, Lymphocytes 37, Monocytes 7, Absolute Monocytes 0.7 H, Eosinophils 1, Absolute Eosinophils 0.1, Absolute Basophils 0.1, Platelet Estimate ADEQUATE, Polychromasia 1+, Poikilocytosis 2+, Anisocytosis 1+, Macrocytic Cells 1+, Ovalocytes 1+, Stomatocytes 1+, Fld Total RBCs Counted 100, Serum Alcohol < 10.0 Departure Departure Disposition: STILL A PATIENT Condition: Stable Clinical Impression Primary Impression: Alcohol dependence with withdrawal with complication Referrals: Vijay REMY,Eunice Rodriguez (PCP/Family) Departure Forms: Customer Survey General Discharge Information Admission Note Spoke With: Ruddy Castillo MD Documentation of Exam: Documentation of any treatments & extenuating circumstances including Concerns Regarding Discharge (functional status, medication knowledge or non-compliance, living conditions, etc.) that warrant an admission rather than observation: IV benzodiazepine to prevent withdrawal seizures DT serial lab exam psychiatric evaluation for alcohol dependence medication adjustment continuing care discharge planning.
[2018-06-21 01:45] LABS: ABSOLUTE BASOPHIL COUNT 0.1 /CUMM (0.0-0.2); ABSOLUTE EOSINOPHIL COUNT 0.1 /CUMM (0.0-0.7); ABSOLUTE GRANULOCYTE CT 7.8 /CUMM (1.4-6.5); ABSOLUTE LYMPH COUNT 3.7 /CUMM (1.2-3.4); ABSOLUTE MONOCYTE COUNT 0.7 /CUMM (0.10-0.60); BASOPHIL % 0.5 % (0.0-2.0); EOSINOPHIL % 0.6 % (0-5); GRANULOCYTE % 63.1 % (42.2-75.2); HEMATOCRIT 36.5 % (37-47); MEAN CORPUSCULAR HGB 28.7 PG (27.0-31.0); MEAN CORPUSCULAR HGB CONC 33.2 G/DL (33.0-37.0); MEAN CORPUSCULAR VOLUME 86.5 FL (81.0-99.0); MEAN PLATELET VOLUME 8.4 FL (7.4-10.4); PLATELET COUNT 396 /CUMM (130-400); RBC DISTRIBUTION WIDTH 20.2 % (11.5-14.5); RED BLOOD CELL CT 4.21 /CUMM (4.20-5.40); WHITE BLOOD CELL COUNT 12.4 /CUMM (4.8-10.8)
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
[2018-06-21] MEDS ORDERED: NEURONTIN600 M1 PO (05:34)
[2018-06-21] MEDS ORDERED: OMEPRAZOLE20 M2 PO (05:35)
[2018-06-21] MEDS ORDERED: PROZAC20 M2 PO (05:36)
[2018-06-21] MEDS ORDERED: PRAZOSIN HCL1 M1 PO (05:37)
[2018-06-21] MEDS ORDERED: MELATONIN3 M4 PO (05:38)
--- NOTE | 2018-06-21 10:34 | PN- Att Addend ---
Attending Addendum Attending Brief Note 33-year-old female past medical history of alcohol dependence and alcohol withdrawal seizure. She is here with acute alcohol withdrawal. She is tremulous and we have her on Ativan 2 mg every 6 around the clock with Ativan per JENNI. She is also on thiamine, folate, multivitamins and will follow closely.
--- NOTE | 2018-06-21 14:52 | Incdntl Nt Psy ---
Incidental Note Notation: Asked to see patient as she wanted to see someone. Went to see patient this morning and again this afternoon. Patient sedated from lorazepam. Pt did not know why she was being seen by Psychiatry. She is not suicidal, homicidal or psychotiic. Will cobntact team again for further information and if necessary will see again tomorrow.
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
[2018-06-22] VITALS (7 sets, daily range): BP systolic 104–130; BP diastolic 62–88
[2018-06-22 08:27] LABS: ABSOLUTE BASOPHIL COUNT 0 /CUMM (0.0-0.2); ABSOLUTE EOSINOPHIL COUNT 0.2 /CUMM (0.0-0.7); ABSOLUTE GRANULOCYTE CT 3.2 /CUMM (1.4-6.5); ABSOLUTE LYMPH COUNT 2.5 /CUMM (1.2-3.4); ABSOLUTE MONOCYTE COUNT 0.4 /CUMM (0.10-0.60); BASOPHIL % 0.4 % (0.0-2.0); EOSINOPHIL % 2.4 % (0-5); GRANULOCYTE % 51.3 % (42.2-75.2); HEMATOCRIT 32.5 % (37-47); MEAN CORPUSCULAR HGB 28.7 PG (27.0-31.0); MEAN CORPUSCULAR HGB CONC 32.7 G/DL (33.0-37.0); MEAN CORPUSCULAR VOLUME 87.6 FL (81.0-99.0); MEAN PLATELET VOLUME 8.2 FL (7.4-10.4); PLATELET COUNT 252 /CUMM (130-400); RBC DISTRIBUTION WIDTH 20.6 % (11.5-14.5); RED BLOOD CELL CT 3.71 /CUMM (4.20-5.40); WHITE BLOOD CELL COUNT 6.3 /CUMM (4.8-10.8)
--- NOTE | 2018-06-22 10:23 | PN- Att Addend ---
Attending Addendum Attending Brief Note Patient seen and examined. Agree with interns note. 33-year-old female history of polysubstance abuse U tox positive for cannabis cocaine and benzos here with acute alcohol withdrawal. We are tapering off the Ativan and we have cut her from 2 every 6 to 2 every 8 and the plan will be to cut by 25% daily. She will see the adoption social worker today. She has a history of signing out AMA multiple times.
--- NOTE | 2018-06-22 10:44 | PN- Housestaff ---
Subjective Follow-up For: Alcohol Abuse Alcohol dependence with withdrawal Subjective: Afebrile overnight. Patient is sleeping while entering the room. Patient is able to awakened and converses normally without difficulty. Patient has no new complaints today and such will be monitored over the weekend with tapering of her Ativan. Patient otherwise denies any tremors, anxiety, palpitations, chest pain, fevers, and fatigue. Review of Systems Constitutional: Reports: see HPI. Objective Last 24 Hrs of Vital Signs/I&O Vital Signs Date Time Temp Pulse Resp B/P B/P Pulse O2 O2 Flow FiO2 Mean Ox Delivery Rate 06/22 1106 98.1 59 18 104/64 96 Room Air 06/22 0552 97.8 47 20 110/84 97 06/21 2217 98.1 50 20 120/90 96 Room Air 06/21 2000 98.1 74 20 130/94 06/21 1805 98.1 74 19 130/94 95 Room Air 06/21 1425 97.8 80 18 130/93 99 Room Air Intake & Output 06/22 1600 06/22 0800 06/22 0000 Intake Total 360 360 Output Total 200 Balance 360 160 Intake, Oral 360 360 Output, Urine 200 Patient 177 lb Weight Physical Exam General Appearance: Alert, Oriented X3, Cooperative, No Acute Distress Skin: No Rashes, No Breakdown HEENT: Atraumatic Neck: Supple, No JVD Cardiovascular: Regular Rate, Normal S1, Normal S2 Lungs: Clear to Auscultation Abdomen: Soft, No Tenderness Neurological: Normal Speech, slight tremor noted in b/l hands Extremities: No Edema, Normal Pulses Assessment/Plan Assessment: Jenae Alvarado is a 33F with a PMH of EtOH abuse drinking since age 16 with multiple admissions and leaving AMA for detox including DT and withdrawal seizures, cocaine abuse, Anxiety, Depression, Self mutilating behavior, PCOS, PTSD who 1 day prior to admission patient decreased her normal alcohol intake with last drink at 3PM on 06/20. She has had multiple inpatient rehab stays, has had withdrawl seizures and DTs. She will be admitted for detox as she is high risk for seizures given her previous history. Problem list/Assessment/Hospital Course: #Alcohol detox w/ hx of DT #Transaminitis 2/2 use of alcohol, resolved #Leukocytosis, likely reactive, resolved #Heart burn/Acid reflux #PMH of PTSD/Anxiety, GERD, alcohol dependence w/ positive hx of DT, substance abuse including cocaine/marijuana, PCOS #Alcohol Detox - Ativan 2mg TID PO and taper per clinical course, along w/ Ativan IV per [facility] protocol - Pt was counseled on risks of signing out AMA prior to completing inpatient detox given her history of leaving AMA - Thiamine, Folic Acid supplementation - Continuing all home meds #Acid Reflux - Omeprazole 40mg daily AC for heart burn. #Transaminitis - LFTs normalized - Pain per pathway, max tylenol 2000mg within 24hrs. DVT prophylaxis ALPS only w/o DVT risk factors Regular Diet IV Access: Peripheral IV FC Problem List: 1. Alcohol dependence with withdrawal with complication 2. Alcohol withdrawal Pain Ratin Pain Location: na Pain Goal: Remain pain free Pain Plan: na Tomorrow's Labs & Rationales: na
--- NOTE | 2018-06-22 13:43 | Discharge Summary ---
Visit Information Visit Dates Admission Date: 06/21/18 Hospital Course Course Attending Physician: Al REMY,Lindsay Ingram Primary Care Physician: Vijay REMY,Eunice Rodriguez Hospital Course: 33 YO F with a PMH of EtOH abuse drinking since age 16 with multiple admissions and leaving AMA for detox including DT and withdrawal seizures, cocaine abuse, Anxiety, Depression, Self mutilating behavior, PCOS, PTSD who 1 day prior to admission patient had decreased her normal alcohol intake with last drink at 3PM on 06/20. She states she normally drinks 10-15 "nips" of captain bryan pierce, and has been cutting down this week with last taken 9 on day of admission. She states she is trying to quit alcohol. She has a history of withdrawal seizures and DTs. She presents with anxiety, generalized tremors, shaking. She states that the last time she had detoxed was at the end of April in [facility]; previously, she has detoxed at the [facility] this year. States multiple inpatient rehab stays, longest time being alcohol free was 1 year back in 2013. Also admits to smoking crack cocaine for the past three days and to taking Xanax for the first time the day prior to admission. Last smoked marijuana 2 weeks ago. She was admitted for detox as she is high risk for seizures given her previous history. Hospital Course: -Alcohol detox w/ hx of DT -Transaminitis 2/2 use of alcohol -Leukocytosis, likely reactive -PMH of PTSD/Anxiety, alcohol dependence w/ positive hx of DT, substance abuse including cocaine/marijuana, PCOS 1. Alcohol Detoxification - Ativan 2mg initially QID -> TID -> BID PO and taper per clinical course, along w/ Ativan IV per [facility] protocol - Thiamine, Folic Acid supplementation - Continuing all home meds 2. Transaminitis - LFTs initially were elevated (AST > ALT) but have since normalized - Pain per pathway, max tylenol 2000mg within 24hrs. Allergies: Coded Allergies: NO KNOWN ALLERGIES (01/01/15) Disposition Summary Disposition Principal Diagnosis: Alcohol withdrawal Alcohol intoxication Additional Diagnosis: Polysubstance abuse Discharge Disposition: home or self care Discharge Instructions General Discharge Information Code Status: Full Code Patient's Diet: Regular Patient's Activity: Resume normal activity, as tolerated Follow-Up Instructions/Appts: Please follow up with your PCP in 7 days. Please continue taking all home medications. If you are experiencing any repeat symptoms of alcohol withdrawal such as anxiety, tremors, palpitations, sweating, nausea, vomiting, auditory/visual disturbances, fever, chills, and fatigue please visit your PCP for further evaluation. Medications at Discharge Discharge Medications: Continue taking these medications: Trazodone HCl (Trazodone HCl) 100 MG TABLET 2 Tablet ORAL Every night Quetiapine Fumarate (Seroquel) 200 MG TABLET 1 Tablet ORAL Every night Qty = 30 Gabapentin (Neurontin) 600 MG TABLET 1 Tablet ORAL THREE TIMES DAILY Omeprazole (Omeprazole) 20 MG CAPSULE.DR 1 Capsule ORAL 3 TIMES DAILY BEFORE MEALS Fluoxetine HCl (Prozac) 20 MG CAPSULE Unknown Dose ORAL Every Morning Prazosin HCl (Prazosin HCl) 1 MG CAPSULE Unknown Dose ORAL Every night Melatonin (Melatonin) 3 MG TABLET Unknown Dose ORAL Every night Copies To: Vijay REMY,Eunice Rodriguez Attending MD Review Statement Documenting Attending: Al REMY,Lindsay Ingram
--- NOTE | 2018-06-22 14:50 | Patient Discharge Instructions ---
Discharge Instructions General Discharge Information You were seen/treated for: Alcohol withdrawal/intoxification You had these procedures: Routine labs (CBC/BEP/Hepatic panel) Alcohol detoxification via [facility] protocol through tapering benzodiazepine doses Watch for these problems: If you are experiencing any repeat symptoms of alcohol withdrawal such as anxiety, tremors, palpitations, sweating, nausea, vomiting, auditory/visual disturbances, fever, chills, and fatigue please visit your PCP for further evaluation. Special Instructions: Please follow up with your PCP in 7 days. Please continue taking all home medications. If you are experiencing any repeat symptoms of alcohol withdrawal such as anxiety, tremors, palpitations, sweating, nausea, vomiting, auditory/visual disturbances, fever, chills, and fatigue please visit your PCP for further evaluation. You are leaving against medical advise with the understanding that withdrawal from alcohol without proper treatment can lead to seizures and be life threatening. Diet Continue normal diet: Yes Recommended Diet: Regular Activity Full Activity/No Limits: No Activity Self Limited: Yes Acute Coronary Syndrome Inclusion Criteria At DC or during hospital stay patient has or had the following: ACS DIAGNOSIS No Discharge Core Measures Meds if any: Prescribed or Continued at Discharge Meds if any: NOT Prescribed or Continued at Discharge Congestive Heart Failure Inclusion Criteria At DC or during hospital stay patient has or had the following: CHF DIAGNOSIS No Discharge Core Measures Meds if any: Prescribed or Continued at Discharge Meds if any: NOT Prescribed or Continued at Discharge Cerebrovascular accident Inclusion Criteria At DC or during hospital stay patient has or had the following: CVA/TIA Diagnosis No Discharge Core Measures Meds if any: Prescribed or Continued at Discharge Meds if any: NOT Prescribed or Continued at Discharge Venous thromboembolism Inclusion Criteria VTE Diagnosis No VTE Type NONE VTE Confirmed by (Test) NONE Discharge Core Measures - Per Current guidelines, there needs to be overlap - treatment for the first 5 days of Warfarin therapy. - If discharged on Warfarin prior to 5 days of - overlap therapy, the patient will need to be - assessed for post discharge needs including - *Post discharge parental anticoagulation - *Warfarin and/or parental anticoagulation education - *Follow up date to check INR post discharge At least 5 days overlap therapy as Inpatient No Meds if any: Prescribed or Continued at Discharge Note: Overlap Therapy is Warfarin and Anticoagulant Meds if any: NOT Prescribed or Continued at Discharge
--- NOTE | 2018-06-22 20:27 | Event Note ---
Event Note Event Note: Situation: I was informed by the nurse that the patient was to leave AGAINST MEDICAL ADVICE. Background: Jenae Alvarado is a 33F with a PMH of EtOH abuse drinking since age 16 with multiple admissions and leaving AMA for detox including DT and withdrawal seizures, cocaine abuse, Anxiety, Depression, Self mutilating behavior, PCOS, PTSD who 1 day prior to admission patient decreased her normal alcohol intake with last drink at 3PM on 06/20. She has had multiple inpatient rehab stays, has had withdrawl seizures and DTs. She will be admitted for detox as she is high risk for seizures given her previous history. Assessment: The patient has previously left AGAINST MEDICAL ADVICE, she is admitted for alcohol detox, she has been on Ativan p.o. twice daily, she has a history of seizure and DTs due to withdrawal. She is at high risk for seizures and DTs again and this can be life-threatening. Recommendations: I asked the nurse to accompany me in her room while I am explaining the risks of leaving AMA without being tapered for Ativan which can be life-threatening. She looks competent and she still wants to leave. I told her that I have to talk to the attending and my senior resident, then they can discuss the situation. The resident spoke to the patient who understood all the risks of leaving without completing the taper of benzo. Patient remains adamant about leaving. Patient signed the AMA paperwork. Dr. Mishra, the attending, was notified and agreed with the plan.
== END 2018-06-22 21:00 | disposition left against medical advice (07) | DRG 894 ==
LOC: ERH 00:38 → 2NA 03:47 → ERHI 03:47 → ENRESERV 05:07 → 2NA 06:28 → ENPENDDIS 06-22 20:57 → 2NA 06-22 21:00
PROVIDERS: Emergency Medicine
DX: F10.239 Alcohol dependence with withdrawal, unspecified (principal); F32.9 Major depressive disorder, single episode, unspecified; F41.9 Anxiety disorder, unspecified; Z91.5 Personal history of self-harm; F43.10 Post-traumatic stress disorder, unspecified; F14.10 Cocaine abuse, uncomplicated; Z53.21 Procedure and treatment not carried out due to patient leaving prior to being seen by health care provider; F10.20 Alcohol dependence, uncomplicated; Y90.0 Blood alcohol level of less than 20 mg/100 ml; F12.10 Cannabis abuse, uncomplicated; F19.10 Other psychoactive substance abuse, uncomplicated; R74.0 Nonspecific elevation of levels of transaminase and lactic acid dehydrogenase [LDH]; K21.9 Gastro-esophageal reflux disease without esophagitis
CPT/HCPCS: 2NASP; 36415; 80307; 82436; 93005; 93010; 96374; 96375; G0480; J3490